=== PATIENT | male | born 1990 | race Caucasian/White ===

== ENCOUNTER 2017-01-14 04:26 | Emergency (ER) | payer MEDICAID ==
[~2017-01-14] VITALS: Ht 182.9 cm; Wt 190.1 kg
[2017-01-14 04:57] VITALS: BP 117/42
== END 2017-01-14 06:40 | disposition left against medical advice (07) ==
LOC: ER 04:26
DX: R10.10 Upper abdominal pain, unspecified (principal); Z53.21 Procedure and treatment not carried out due to patient leaving prior to being seen by health care provider
CPT/HCPCS: 71250; 93005

== ENCOUNTER 2017-02-25 16:02 | Inpatient (IN) | payer MEDICAID ==
[~2017-02-25] VITALS: Ht 182.9 cm; Wt 90.6 kg
[2017-02-25] MEDS ORDERED: IBUPROFEN 600 MG TAB PO ONE (16:30)
[2017-02-25] MEDS ORDERED: ACETAMINOPHEN 500 MG TAB PO ONE (16:30)
[2017-02-25 16:58] LABS: Basophils # (auto) 0 uL; Basophils % (auto) 0.1 % (0.0-2.0); CONDITION Y; Eosinophils # (auto) 0.1 uL; Eosinophils % (auto) 0.4 % (0.0-7.0); Hematocrit 40.5 % (41.0-53.0); Hemoglobin 13.7 g/dL (13.5-17.5); Lymphocytes # (auto) 1.9 uL; Lymphocytes % (auto) 11.4 % (10.0-50.0); Mean Corpuscular Hgb Conc. 33.8 g/dL (32.0-36.0); Mean Corpuscular Volume 82.9 fL (80.0-100.0); Mean Platelet Volume 11.4 fL (7.4-10.4); Monocytes # (auto) 1.4 uL; Monocytes % (auto) 8.5 % (0.0-12.0); Neutrophils # (auto) 13.2 uL; Neutrophils % (auto) 79.6 % (37.0-80.0); Platelet Count (auto) 213 10^3/uL (140-450); Red Cell Distribution Width 15.4 % (11.6-16.0); SUSPECT SEE PRINTOUT; White Blood Cell 16.6 10^3/uL (4.4-10.8)
[2017-02-25 17:18] LABS: Albumin 3.6 g/dL (3.4-5.0); Anion Gap 10 (5-15); Aspartate Aminotransferase 18 U/L (15-37); BUN/Creatinine Ratio 9.3; Blood Urea Nitrogen 11 mg/dL (7-18); Calcium 8.3 mg/dL (8.5-10.1); Carbon Dioxide 23 mmol/L (21-32); Chloride 105 mmol/L (98-107); GFR African American 95 mL/min; GFR Non-African American 78 mL/min; Glucose 99 mg/dL (74-106); Potassium 4.1 mmol/L (3.5-5.1); Sodium 138 mmol/L (136-145)
[2017-02-25 17:23] LABS: Alkaline Phosphatase 49 U/L (45-117); Bilirubin, Total 0.7 mg/dL (0.2-1.0); Total Protein 8.2 g/dL (6.4-8.2)
[2017-02-25] MEDS ORDERED: cefTRIAXone 1GM/50ML D5W 50 ML IV ONE (17:45)
[2017-02-25] MEDS ORDERED: SODIUM CHLORIDE 0.9% 1,000 ML IV ONE ×2 (17:52)
[2017-02-25] MEDS ORDERED: AZITHROMYCIN 500MG/D5W 250ML 250 ML IV ONE (19:15)
[2017-02-25] MEDS ORDERED: MORPHINE SULF INJ 2 MG/ML SYRINGE 1ML IV PRN ×2 (19:45)
[2017-02-25] MEDS ORDERED: DEXTROSE (50%) 50ML SYRG IV PRN (19:45)
[2017-02-25] MEDS ORDERED: ACETAMINOPHEN 325 MG TAB PO PRN (19:45)
[2017-02-25] MEDS ORDERED: cloNIDine HCL 0.1 MG TAB PO PRN (19:45)
[2017-02-25] MEDS ORDERED: TEMAZEPAM 15 MG CAP PO PRN (19:45)
[2017-02-25] MEDS ORDERED: NITROGLYCERIN 0.4 MG SL TAB SL PRN (19:45)
[2017-02-25] MEDS ORDERED: ONDANSETRON HCL 4 MG/2 ML VIAL IV PRN (19:45)
[2017-02-25] MEDS ORDERED: DOCUSATE SOD 100 MG CAP PO PRN (19:45)
[2017-02-25 21:21] LABS: Urine Bilirubin Negative (Negative); Urine Blood Negative /uL (Negative); Urine Color Amber (Yellow); Urine Glucose Normal (Normal); Urine Ketone Negative (Negative); Urine Mucus FEW (None Seen); Urine Nitrite Negative (Negative); Urine RBC 1 /hpf (0 - 3); Urine Urobilinogen Normal (Negative); Urine pH 6.5 (5.0-8.0)
[2017-02-25] MEDS: InsuLIN REG 1unit/0.01ml Soln (100units/ml) SC SCH (22:00)
[2017-02-25] MEDS: ACCU-CHEK COMFORT CURVE STRIP VI SCH (22:00)
[2017-02-25] MEDS: ALBUTEROL SULF 2.5 MG/0.5ML(0.5%) NEB SOLN NEB SCH (22:26)
[2017-02-25] MEDS: IPRATROPIUM BROM 0.5 MG/2.5ML INH SOL NEB SCH (22:26)
[2017-02-25] MEDS: SODIUM CHLORIDE 0.9% 1,000 ML IV SCH (23:20)
[2017-02-25] MEDS: FAMOTIDINE 20 MG TAB PO SCH (23:21)
[2017-02-25] MEDS: ACETAMINOPHEN 325 MG TAB PO PRN (23:26)
[2017-02-26] MEDS ORDERED: LORazepam 2MG/ML-1ML VIAL IV ONE (01:00)
[2017-02-26] MEDS: IPRATROPIUM BROM 0.5 MG/2.5ML INH SOL NEB SCH ×6 (02:25→22:47)
[2017-02-26] MEDS: ALBUTEROL SULF 2.5 MG/0.5ML(0.5%) NEB SOLN NEB SCH ×6 (02:25→22:47)
[2017-02-26 03:52] LABS: Basophils # (auto) 0 uL; Basophils % (auto) 0.3 % (0.0-2.0); CONDITION Y; Eosinophils # (auto) 0.1 uL; Eosinophils % (auto) 0.7 % (0.0-7.0); Hematocrit 39.3 % (41.0-53.0); Hemoglobin 13.3 g/dL (13.5-17.5); Lymphocytes # (auto) 1.7 uL; Lymphocytes % (auto) 13.2 % (10.0-50.0); Mean Corpuscular Hemoglobin 28.2 pg (28.0-32.0); Mean Corpuscular Hgb Conc. 33.8 g/dL (32.0-36.0); Mean Corpuscular Volume 83.6 fL (80.0-100.0); Mean Platelet Volume 11.8 fL (7.4-10.4); Monocytes # (auto) 1.2 uL; Monocytes % (auto) 9.1 % (0.0-12.0); Neutrophils # (auto) 9.8 uL; Neutrophils % (auto) 76.7 % (37.0-80.0); Platelet Count (auto) 207 10^3/uL (140-450); Red Cell Distribution Width 15.4 % (11.6-16.0); SUSPECT SEE PRINTOUT; White Blood Cell 12.7 10^3/uL (4.4-10.8)
[2017-02-26 04:03] VITALS: BP 136/40
[2017-02-26 04:16] LABS: Albumin 3.3 g/dL (3.4-5.0); BUN/Creatinine Ratio 11.1; Calcium 7.8 mg/dL (8.5-10.1); Potassium 4.2 mmol/L (3.5-5.1)
[2017-02-26 04:18] LABS: Bilirubin, Total 0.7 mg/dL (0.2-1.0); Total Protein 7.7 g/dL (6.4-8.2)
[2017-02-26] MEDS: ACETAMINOPHEN 325 MG TAB PO PRN (05:10)
[2017-02-26] MEDS ORDERED: IBUPROFEN 800 MG TAB PO ONE (05:15)
[2017-02-26] MEDS: InsuLIN REG 1unit/0.01ml Soln (100units/ml) SC SCH ×2 (06:45→12:09)
[2017-02-26] MEDS: ACCU-CHEK COMFORT CURVE STRIP VI SCH ×2 (06:45→12:08)
[2017-02-26] MEDS: SODIUM CHLORIDE 0.9% 1,000 ML IV SCH ×2 (07:21→12:19)
[2017-02-26] MEDS: cefTRIAXone 1GM/50ML D5W 50 ML IV SCH (09:01)
[2017-02-26] MEDS: AZITHROMYCIN 500MG/D5W 250ML 250 ML IV SCH (09:51)
[2017-02-26] MEDS: MULTIPLE VITAMIN TAB PO SCH (10:26)
[2017-02-26] MEDS: FAMOTIDINE 20 MG TAB PO SCH ×2 (10:26→22:52)
[2017-02-26] MEDS ORDERED: THIAMINE HCL 100 MG TAB PO ONE (13:15)
[2017-02-26] MEDS ORDERED: chlordiazePOXIDE HCL 5 MG CAP PO PRN (13:15)
[2017-02-26] MEDS ORDERED: FOLIC ACID 1 MG TAB PO ONE (13:15)
[2017-02-26] MEDS ORDERED: ENOXAPARIN SOD 40 MG/0.4 ML SYRINGE SC ONE (13:15)
[2017-02-26] MEDS: IBUPROFEN 400 MG TAB PO PRN ×2 (13:36→21:07)
[2017-02-26 13:46] LABS: B-Type Natriuretic Peptide 11.16 pg/mL (0-100)
[2017-02-26 14:02] LABS: Temperature: 22.7 C (20.0-25.0)
[2017-02-26 15:50] VITALS: BP 110/45
[2017-02-26] MEDS: HYDROcodone-ACET 5/325MG TAB PO PRN ×2 (16:45→21:09)
[2017-02-26 21:59] VITALS: BP 128/65
[2017-02-27] MEDS: IPRATROPIUM BROM 0.5 MG/2.5ML INH SOL NEB SCH ×6 (02:26→22:06)
[2017-02-27] MEDS: ALBUTEROL SULF 2.5 MG/0.5ML(0.5%) NEB SOLN NEB SCH ×6 (02:26→22:06)
[2017-02-27] MEDS: HYDROcodone-ACET 5/325MG TAB PO PRN ×3 (04:32→21:21)
[2017-02-27] MEDS: IBUPROFEN 400 MG TAB PO PRN ×3 (04:33→21:24)
[2017-02-27 05:30] VITALS: BP 139/55
[2017-02-27 06:19] LABS: Basophils # (auto) 0 uL; Basophils % (auto) 0.3 % (0.0-2.0); CONDITION Y; Eosinophils # (auto) 0.2 uL; Eosinophils % (auto) 1.7 % (0.0-7.0); Hemoglobin 11.6 g/dL (13.5-17.5); Lymphocytes # (auto) 1.7 uL; Mean Corpuscular Hemoglobin 27.7 pg (28.0-32.0); Mean Corpuscular Hgb Conc. 33.3 g/dL (32.0-36.0); Mean Corpuscular Volume 83.3 fL (80.0-100.0); Mean Platelet Volume 11.6 fL (7.4-10.4); Monocytes # (auto) 1.1 uL; Monocytes % (auto) 11.8 % (0.0-12.0); Neutrophils # (auto) 6.7 uL; Neutrophils % (auto) 69.2 % (37.0-80.0); Platelet Count (auto) 181 10^3/uL (140-450); Red Cell Distribution Width 15.7 % (11.6-16.0); White Blood Cell 9.7 10^3/uL (4.4-10.8)
[2017-02-27 06:38] LABS: Calcium 8.3 mg/dL (8.5-10.1); Potassium 4.3 mmol/L (3.5-5.1)
[2017-02-27 08:40] VITALS: BP 106/59
[2017-02-27] MEDS: cefTRIAXone 1GM/50ML D5W 50 ML IV SCH (09:58)
[2017-02-27] MEDS: ENOXAPARIN SOD 40 MG/0.4 ML SYRINGE SC SCH (09:58)
[2017-02-27] MEDS: FOLIC ACID 1 MG TAB PO SCH (09:58)
[2017-02-27] MEDS: MULTIPLE VITAMIN TAB PO SCH (09:58)
[2017-02-27] MEDS: FAMOTIDINE 20 MG TAB PO SCH ×2 (09:58→21:21)
[2017-02-27] MEDS: THIAMINE HCL 100 MG TAB PO SCH (10:01)
[2017-02-27] MEDS: AZITHROMYCIN 500MG/D5W 250ML 250 ML IV SCH (11:21)
[2017-02-27 13:00] VITALS: BP 131/70
[2017-02-27 17:24] VITALS: BP 129/78
[2017-02-27 22:00] VITALS: BP 106/58
[2017-02-28] MEDS: ALBUTEROL SULF 2.5 MG/0.5ML(0.5%) NEB SOLN NEB SCH ×4 (03:12→13:41)
[2017-02-28] MEDS: IPRATROPIUM BROM 0.5 MG/2.5ML INH SOL NEB SCH ×4 (03:12→13:41)
[2017-02-28 04:00] VITALS: BP 99/41
[2017-02-28 07:48] VITALS: BP 110/67
[2017-02-28] MEDS: cefTRIAXone 1GM/50ML D5W 50 ML IV SCH (08:55)
[2017-02-28] MEDS: FAMOTIDINE 20 MG TAB PO SCH (10:33)
[2017-02-28] MEDS ORDERED: LEVO750T64 PO (10:33)
[2017-02-28] MEDS: AZITHROMYCIN 500MG/D5W 250ML 250 ML IV SCH (10:33)
[2017-02-28] MEDS: MULTIPLE VITAMIN TAB PO SCH (10:33)
[2017-02-28] MEDS: ENOXAPARIN SOD 40 MG/0.4 ML SYRINGE SC SCH (10:34)
[2017-02-28] MEDS: FOLIC ACID 1 MG TAB PO SCH (10:34)
[2017-02-28] MEDS: THIAMINE HCL 100 MG TAB PO SCH (10:34)
[2017-02-28] MEDS: HYDROcodone-ACET 5/325MG TAB PO PRN (10:44)
[2017-02-28 12:17] VITALS: BP 106/66
[2017-02-28 12:19] VITALS: BP 106/60
[2017-02-28 12:45] VITALS: BP 110/67
== END 2017-02-28 15:07 | disposition home or self-care (01) | DRG 720 ==
LOC: ER 16:09 → TELE 16:10 → TELE-E-ADS 02-26 15:22 → TELE-EAST 02-26 17:47
PROVIDERS: ADMIT Internal Medicine; ATTEND Internal Medicine
DX: A41.9 Sepsis, unspecified organism (principal); J18.9 Pneumonia, unspecified organism; E11.21 Type 2 diabetes mellitus with diabetic nephropathy; E66.01 Morbid (severe) obesity due to excess calories; J45.901 Unspecified asthma with (acute) exacerbation; J20.9 Acute bronchitis, unspecified; I12.9 Hypertensive chronic kidney disease with stage 1 through stage 4 chronic kidney disease, or unspecified chronic kidney disease; N18.2 Chronic kidney disease, stage 2 (mild); D63.8 Anemia in other chronic diseases classified elsewhere; E11.22 Type 2 diabetes mellitus with diabetic chronic kidney disease; Z91.14 Patient's other noncompliance with medication regimen; Z83.3 Family history of diabetes mellitus; Z68.27 Body mass index [BMI] 27.0-27.9, adult
CPT/HCPCS: 36415; 71020; 80048; 80053; 81001; 82962; 83036; 83605; 83880; 84443; 84484; 85025; 87040; 87070; 87205; 87493; 93005; 93306; 94640; 96365; 96367; J0696

== ENCOUNTER 2017-07-27 11:04 | Emergency (ER) | payer BC, MEDICAID ==
[~2017-07-27] VITALS: Ht 182.9 cm; Wt 183.7 kg
[~2017-07-27 11:04] MED LIST: LEVO750T64 PO
[2017-07-27 11:24] VITALS: BP 120/69
== END 2017-07-27 13:59 | disposition left against medical advice (07) ==
LOC: ER 11:04
DX: M25.511 Pain in right shoulder (principal); J45.909 Unspecified asthma, uncomplicated; E78.5 Hyperlipidemia, unspecified; I10 Essential (primary) hypertension; F17.210 Nicotine dependence, cigarettes, uncomplicated; Z53.29 Procedure and treatment not carried out because of patient's decision for other reasons
CPT/HCPCS: 73030

== ENCOUNTER 2017-12-08 03:01 | Emergency (ER) | payer BC, MEDICAID ==
[~2017-12-08] VITALS: Ht 182.9 cm; Wt 195.0 kg
[2017-12-08 06:58] LABS: Basophils # (auto) 0.1 uL; Basophils % (auto) 0.5 % (0.0-2.0); Eosinophils # (auto) 0.2 uL; Eosinophils % (auto) 1.8 % (0.0-7.0); Hematocrit 41.8 % (41.0-53.0); Lymphocytes # (auto) 3.1 uL; Lymphocytes % (auto) 32.2 % (10.0-50.0); Mean Corpuscular Hemoglobin 27.9 pg (28.0-32.0); Mean Corpuscular Hgb Conc. 33.6 g/dL (32.0-36.0); Monocytes # (auto) 0.7 uL; Monocytes % (auto) 7.5 % (0.0-12.0); Neutrophils # (auto) 5.6 uL; Nucleated Red Blood Cells % 0.1 %; Platelet Count (auto) 191 10^3/uL (140-450); Red Blood Cells 5.04 10^6/uL (4.5-5.90); Red Cell Distribution Width 15.1 % (11.8-14.3); White Blood Cell 9.7 10^3/uL (4.4-10.8)
[2017-12-08 07:18] LABS: INR 0.94 (0.9-1.15); Partial Thromboplastin Time 38.3 sec (22.64-33.71); Prothrombin Time 10.2 sec (9.37-12.3)
[2017-12-08 07:20] LABS: Chloride 107 mmol/L (98-107); Potassium 4.1 mmol/L (3.5-5.1); Sodium 141 mmol/L (136-145)
[2017-12-08 07:24] LABS: Albumin 3.5 g/dL (3.4-5.0); Anion Gap 10 (5-15); BUN/Creatinine Ratio 14.4; Blood Urea Nitrogen 14 mg/dL (7-18); Calcium 8.7 mg/dL (8.5-10.1); Carbon Dioxide 24 mmol/L (21-32); GFR African American 118 mL/min; GFR Non-African American 97 mL/min; Glucose 128 mg/dL (74-106); Magnesium 1.9 mg/dL (1.6-2.6)
[2017-12-08 07:45] LABS: Alanine Aminotransferase 35 U/L (16-61); Alkaline Phosphatase 55 U/L (45-117); Aspartate Aminotransferase 23 U/L (15-37); Bilirubin, Total 0.3 mg/dL (0.2-1.0); Total Protein 7.7 g/dL (6.4-8.2)
[2017-12-08 09:30] VITALS: BP 154/94
== END 2017-12-08 09:44 | disposition home or self-care (01) ==
LOC: ER 03:01
DX: R07.9 Chest pain, unspecified (principal); E11.9 Type 2 diabetes mellitus without complications; J45.909 Unspecified asthma, uncomplicated; I10 Essential (primary) hypertension; E78.5 Hyperlipidemia, unspecified; F17.210 Nicotine dependence, cigarettes, uncomplicated; E66.01 Morbid (severe) obesity due to excess calories; Z68.43 Body mass index [BMI] 50.0-59.9, adult
CPT/HCPCS: 36415; 71046; 80053; 83735; 84484; 85025; 85610; 85730; 93005

== ENCOUNTER 2020-02-05 22:28 | Emergency (ER) | payer BC, MEDICAID ==
[~2020-02-05] VITALS: Ht 182.9 cm; Wt 183.7 kg
[2020-02-05 22:44] VITALS: BP 150/91
[2020-02-06] MEDS ORDERED: ONDANSETRON ODT 4 MG TAB PO ONE (01:30)
[2020-02-06] MEDS ORDERED: KETOROLAC TROMETH 60MG/2ML VIAL IM ONE (01:45)
[2020-02-06 01:49] LABS: Urine Bacteria FEW /hpf (None Seen); Urine Blood Negative /uL (Negative); Urine Hyaline Cast FEW /lpf (0 - 2); Urine Mucus FEW (None Seen); Urine WBC 1 /hpf (0 - 3)
[2020-02-06 02:04] LABS: Amphetamine Screen, Urine NEGATIVE (NEGATIVE); Barbiturate Scree,Urine NEGATIVE (NEGATIVE); Benzodiazephine Screen, Urine NEGATIVE (NEGATIVE); Cannabinoid Screen, Urine NEGATIVE (NEGATIVE); Cocaine Screen, Urine NEGATIVE (NEGATIVE); Opiate Scree,Urine NEGATIVE (NEGATIVE); Phencyclidine Screen, Urine NEGATIVE (NEGATIVE)
== END 2020-02-06 03:06 | disposition home or self-care (01) ==
LOC: ER 22:28
DX: S23.3XXA Sprain of ligaments of thoracic spine, initial encounter (principal); N39.0 Urinary tract infection, site not specified; E66.9 Obesity, unspecified; J45.909 Unspecified asthma, uncomplicated; E11.9 Type 2 diabetes mellitus without complications; E78.5 Hyperlipidemia, unspecified; I10 Essential (primary) hypertension; X58.XXXA Exposure to other specified factors, initial encounter; Y93.89 Activity, other specified; Y92.89 Other specified places as the place of occurrence of the external cause; Y99.8 Other external cause status
CPT/HCPCS: 72070; 72100; 80307; 81001; 96372; 99284; J1885; Q0162